=== PATIENT | male | born 2000 | race Caucasian/White ===

== ENCOUNTER 2019-10-03 01:43 | Emergency (ER) | payer OTHER ==
[2019-10-03 01:54] VITALS: TEMP 98.5
[2019-10-03] MEDS ORDERED: TETANUS-DIPHTHERIA TOX (PF) 0.5 ML VIAL IM ONE (02:01)
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
[2019-10-03] MEDS: MORPHINE SULFATE 4 MG/ML SYRINGE IM STA ×2 (02:09→02:14)
[2019-10-03] MEDS ORDERED: KETOROLAC 30 MG/ML 1 ML VIAL IVP STA (02:15)
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
[2019-10-03] MEDS ORDERED: SODIUM CHLORIDE 0.9% 1,000 ML IV STA (02:23)
[2019-10-03 02:39] LABS: Basophils # (A) 0.1 k/uL (0-0.2); Basophils % (A) 1 %; Eosinophils # (A) 0.1 k/uL (0-0.7); Eosinophils % (A) 1 %; HCT 45.5 % (39.0-53.0); HGB 14.8 gm/dL (13.0-17.5); Lymphocytes # (A) 2.4 k/uL (1.0-4.8); Lymphocytes % (A) 27 %; MCH 29.2 pg (25.0-35.0); MCHC 32.4 g/dL (31.0-37.0); Mean Platelet Volume 7.8; Monocytes # (A) 0.5 k/uL (0-1.0); Monocytes % (A) 6 %; Neutrophils # (A) 5.7 k/uL (1.3-7.7); Neutrophils % (A) 63 %; Platelet Count 305 k/uL (150-450); RBC 5.06 m/uL (4.30-5.90); RDW 12.3 % (11.5-15.5); WBC 9.1 k/uL (3.8-10.6)
[2019-10-03 02:48] LABS: ALT 31 U/L (4-49); AST 42 U/L (17-59); African American GFR (CKD) >90 (>60 ml/min/1.73 sqM); Albumin 5.1 g/dL (3.5-5.0); Alkaline Phosphatase 91 U/L (38-126); Anion Gap 13 mmol/L; Blood Urea Nitrogen 11 mg/dL (9-20); Calcium 9.9 mg/dL (8.4-10.2); Carbon Dioxide 24 mmol/L (22-30); Chloride 107 mmol/L (98-107); Glucose 115 mg/dL (74-99); Non-African American GFR(CKD) >90 (>60 ml/min/1.73 sqM); Potassium 4.2 mmol/L (3.5-5.1); Sodium 144 mmol/L (137-145); Total Bilirubin 0.3 mg/dL (0.2-1.3)
[2019-10-03 03:00] VITALS: BP 99/65; PULSE 78; RESP 20
[2019-10-03 03:06] LABS: INR 1.2 (<1.2); Prothrombin Time 11.7 sec (9.0-12.0)
--- NOTE | 2019-10-03 03:10 | CT ---
EXAMINATION TYPE: CT chest wo con DATE OF EXAM: 10/03/2019 COMPARISON: None HISTORY: Fall CT DLP: 337.9 mGycm Automated exposure control for dose reduction was used. Multiple axial sections were obtained from the thoracic inlet to the diaphragm with no contrast. The heart and mediastinum appear normal. There is no mediastinal adenopathy. There are no hilar goldie s. There is no pericardial effusion. There is some mild infiltrate in the right lower lobe right para spinal region. There is small emphysematous bleb in the right paraspinal right lower lobe superior se gment. There is no pneumothorax. The left lung is clear. Upper abdominal soft tissues are intact. The thoracic spine is intact. Shoulder joints appear intact. There is no evidence of a rib fracture. IMPRESSION: Mild interstitial subpleural infiltrate right paraspinal right lower lobe. No rib fracture seen. The appearance is nonspecific. Pleural-based emphysematous bleb with adjacent 15 x 8 mm nodule. Pulmonary contusion is possible. This could also be inflammatory.
[2019-10-03 03:27] LABS: Partial Thromboplastin Time 19.1 sec (22.0-30.0)
== END 2019-10-03 03:30 | disposition home or self-care (01) ==
LOC: EC 01:43
DX: S27.329A Contusion of lung, unspecified, initial encounter (principal); Z88.2 Allergy status to sulfonamides; Z88.0 Allergy status to penicillin; W14.XXXA Fall from tree, initial encounter; Y92.410 Unspecified street and highway as the place of occurrence of the external cause
CPT/HCPCS: 99285; 96374; 96361; 36415; 80053; 84484; 85025; 85610; 85730; 71045; 71250; J1885

== ENCOUNTER → 2020-03-13 | Outpatient (CLI) | payer OTHER | END | disposition home or self-care (01) | LOC: LABWHC1 12:40 | PROVIDERS: ATTEND Pediatrics Pediatric Infectious Diseases | DX: Z03.818 Encounter for observation for suspected exposure to other biological agents ruled out (principal) | CPT/HCPCS: U0003; C9803 ==

== ENCOUNTER → 2021-04-28 | Outpatient (CLI) | payer BC, OTHER | END | disposition home or self-care (01) | LOC: LABWHC1 09:14 | PROVIDERS: ATTEND Emergency Medicine | DX: U07.1 COVID-19 (principal) | CPT/HCPCS: 87635 ==

== ENCOUNTER → 2022-11-04 | Outpatient (CLI) | payer OTHER ==
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
== END | disposition home or self-care (01) ==
LOC: RADXRMAIN 19:41
PROVIDERS: ATTEND Emergency Medicine
DX: M79.89 Other specified soft tissue disorders (principal)